=== PATIENT | female | born 2005 | race Caucasian/White ===

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

== ENCOUNTER 2023-04-11 20:41 | Emergency (ER) | payer SELFPAY | END 2023-04-11 23:00 | disposition home or self-care (01) | LOC: JD.ED 20:41 | DX: O20.0 Threatened abortion (principal); Z3A.00 Weeks of gestation of pregnancy not specified | CPT/HCPCS: 36415; 76817; 76817-26; 84702; 99283; 99284 ==